=== PATIENT | female | born 1995 | race Caucasian/White ===

== ENCOUNTER → 2020-04-07 | Outpatient (REF) | payer OTHER ==
[2020-04-07 13:53] LABS: HEMATOCRIT 32.5 % (36.0-47.0); HEMOGLOBIN 10.3 g/dl (12.0-15.5); MEAN CORPUSCULAR HEMOGLOBIN 26.7 pg (27.0-33.0); MEAN CORPUSCULAR HGB CONC 31.7 g/dl (32.0-36.5); MEAN CORPUSCULAR VOLUME 84.2 fl (80.0-96.0); PLATELET COUNT, AUTOMATED 319 10^3/uL (150-450); RED BLOOD COUNT 3.86 10^6/uL (4.00-5.40); WHITE BLOOD COUNT 13.9 10^3/uL (4.0-10.0)
== END ==
LOC: M PLALAB 09:40
PROVIDERS: ATTEND Advanced Practice Midwife
DX: Z34.83 Encounter for supervision of other normal pregnancy, third trimester (principal); Z3A.00 Weeks of gestation of pregnancy not specified

== ENCOUNTER → 2020-05-03 | Outpatient (REF) | payer OTHER | LOC: M SFHCWAGY 13:06 | PROVIDERS: ATTEND Obstetrics & Gynecology | DX: O99.820 Streptococcus B carrier state complicating pregnancy (principal); Z34.83 Encounter for supervision of other normal pregnancy, third trimester ==

== ENCOUNTER 2020-05-28 08:20 | Inpatient (IN) | payer OTHER ==
[~2020-05-28] VITALS: Ht 160 cm; Wt 83.6 kg
[2020-05-28 09:01] VITALS: BP 130/77
[2020-05-28] MEDS ORDERED: FERR325T3 PO (09:11)
[2020-05-28] MEDS ORDERED: PRENTAB9 PO (09:11)
[2020-05-28] MEDS ORDERED: BENA25CA4 PO (09:11)
[2020-05-28] MEDS ORDERED: LACTATED RINGER'S 1000 ML IV STA (09:39)
[2020-05-28] MEDS ORDERED: LIDOCAINE 1% MDV 20ML VIAL INFIL PRN (09:40)
[2020-05-28] MEDS ORDERED: METHYLERGONOVINE MALEATE 0.2 MG/ML VIAL (J2210) IM PRN (09:40)
[2020-05-28] MEDS ORDERED: OXYTOCIN DRIP 30 UNITS in IV 1 EA IV PRN (09:40)
[2020-05-28 10:21] LABS: HEMATOCRIT 35.6 % (36.0-47.0); HEMOGLOBIN 11.5 g/dl (12.0-15.5); MEAN CORPUSCULAR HEMOGLOBIN 26.8 pg (27.0-33.0); MEAN CORPUSCULAR HGB CONC 32.3 g/dl (32.0-36.5); PLATELET COUNT, AUTOMATED 293 10^3/uL (150-450); RED BLOOD COUNT 4.29 10^6/uL (4.00-5.40); WHITE BLOOD COUNT 12.1 10^3/uL (4.0-10.0)
--- NOTE | 2020-05-28 10:21 | HPEPDOC ---
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 History: Spontaneous , Theraputic Past Medical History Surgical History: Denies/None Family History Significant Family History: No pertinent family hx, Cancer Social History Marital Status: Family situation: Spouse/partner home Psychosocial History: No pertinent psych hx * Smoker: non-smoker Alcohol: Denies Drugs: denies Abuse Violence Screening Have you been hit/kicked/slapp: No Have you been sexually assault: No Imunizations Tdap status: needs Influenza Status: current Allergies Uncoded Allergies: TUMMS (Allergy, Intermediate, HIVES, N/V, 05/28/20) Medications Scheduled Diphenhydramine HCl (Benadryl) 25 Mg Capsule, 25 MG PO QPM for HIVES/PUPPS Ferrous Sulfate (Ferrous Sulfate) 325 Mg Tablet.dr, 325 MG PO DAILY No.137/Iron/Folic Acd ( Vitamin Tablet) 1 Each Tablet, 1 TAB PO DAILY Physical Examination Physical Examination GENERAL: Alert and oriented times three. BREAST: . ABDOMEN: Gravid and non-tender to touch. PUPPS noted FETUS: Is vertex (VTX) by sterile vaginal examination (SVE), fetus is vertex (VTX) by Chaim. EFW 8# HEART RATE: Regular rate and rhythm. LUNGS: Clear to auscultation (CTA). EXTREMITIES: No edema. No clonus. Deep tendon reflexes (DTRs) + 2. Laboratory Data 24H LABS Laboratory Tests 2 05/28/20 08:53: Serology Scanned Report Hepatitis B Testing Pertinent Laboratoy Data Blood Type: O+ RBC Antibody Screen: Negative HIV: Negative Hepatitis B: Negative Rapid Plasma Reagin: Nonreactive Rubella: Immune Chlamydia/Gonorrhea: Negative Group B Streptococcus: Negative Other Ultrasounds [facility] 06/02/2020 Steroid Therapy Steroid Therapy: No Vaginal Examination Dilation: 1cm Effacement: 50% Station: -2 Cervical Consistency: Soft Cervical Position: Anterior Presentation: Cephalic presentation Assessment Heart Rate (FHR): 145 Variability: Moderate Accelerations: Positive Decelerations: None Tocometer Contractions: Yes Frequency: irregular (not perceived by patient) Assessment/Plan Assessment Hemalatha is a 24-year-old (G)3 para (P)0-0-2-0 at 39+6 weeks by 7-week ultrasound. Presents to Labor and Delivery (L&D) induction of labor due to PUPPS. Accessed first trimester care in [place]. Transferred to [facility] @ 31 wks. Care has been appropriate. Denies LOF, bleeding or regular UC. Reports good movement. Plan Admit and orient. Glove Printer and consent per consult Dr Roberts Diet: Regular Group B Streptococcus (GBS) negative Labs and intravenous (IV) per unit protocol. Counseled on misoprostol, Pitocin and induction of labor (IOL). Lactated Ringers (LR): Bolus 500 mL, then saline lock. Plans epidural Anticipate normal spontaneous delivery () C-S as appropriate. Amy Slater CNM May 28, 2020 10:21
[2020-05-28 10:56] LABS: ALBUMIN 2.6 GM/DL (3.2-5.2); ALT/SGPT 16 U/L (12-78); BILIRUBIN,DIRECT < 0.1 MG/DL (0.0-0.2); BILIRUBIN,TOTAL 0.2 MG/DL (0.2-1.0); TOTAL PROTEIN 6.1 GM/DL (6.4-8.2)
[2020-05-28 11:55] VITALS: BP 123/65
[2020-05-28] MEDS: miSOPROStol 50MCG 1/2 TABLET PO SCH ×3 (11:55→21:07)
[2020-05-28] MEDS ORDERED: diphenhydrAMINE CREAM 30GM TOP PRN (13:00)
[2020-05-28 14:09] VITALS: BP 131/74
[2020-05-28 16:33] VITALS: BP 125/75
[2020-05-28 18:47] VITALS: BP 139/77
[2020-05-28 19:09] VITALS: BP 138/81
--- NOTE | 2020-05-28 20:27 | IPNPDOC ---
Text Note Date of Service The patient was seen on 05/28/20. NOTE Progress Reports feeling UC but remains comfortable FH 135, Cat I UC 3-4 minutes, mild SVE /-2 Continue misoprostol at present VS,Dionbone, I+O VS, Fishbone, I+O Laboratory Tests 05/28/20 09:45 Vital Signs Date Time Temp Pulse Resp B/P (MAP) Pulse Ox O2 Delivery O2 Flow Rate FiO2 05/28/20 19:09 98.8 85 18 138/81 (100) Amy Slater CNM May 28, 2020 20:27
[2020-05-28] MEDS ORDERED: PROMETHAZINE INJ 25 MG/ML VIAL (J2550) IV ONE (21:55)
[2020-05-28] MEDS ORDERED: BUTORPHANOL 2 MG/ML INJ (J0595) IV ONE (21:55)
[2020-05-29] VITALS (38 sets, daily range): BP systolic 111–150; BP diastolic 60–89
[2020-05-29] MEDS ORDERED: LR 500 ML IV ONE (02:20)
[2020-05-29] MEDS: miSOPROStol 50MCG 1/2 TABLET PO SCH (03:04)
[2020-05-29] MEDS ORDERED: LR 1,000 ML IV SCH (08:17)
[2020-05-29] MEDS ORDERED: OXYTOCIN DRIP 30 UNITS in IV 1 EA IV SCH (08:20)
--- NOTE | 2020-05-29 08:26 | IPNPDOC ---
Obstetrical Progress Note Date of Service May 29, 2020 Subjective 24 yo at 40 0/7 weeks, day#2 induction. She rates contraction pain as 4/10 intensity. Objective Vital Signs Date Time Temp Pulse Resp B/P (MAP) Pulse Ox O2 Delivery O2 Flow Rate FiO2 05/29/20 07:49 97.8 94 20 137/71 (93) Assessment Heart Rate (FHR): 140 Variability: Moderate Accelerations: Positive Decelerations: None Heart Rate Tracing: Category I Sterile Vaginal Examination Dilation: 2cm Effacement (%): 70% Station: -2 Cervical Consistency: Soft Cervical Position: Posterior Postion/Presentation: Cephalic presentation Assessment and Plan Age: 24 : 3 Term: 0 Pre-term: 0 Abortions: 2 Livin Status: Reassuring Additional Comments 24 yo at 40 0/7, induction Pt has received 4 doses of Misoprostol Plan ot start Pitocin now Consider AROM later Pt desires epidural at some point, preferably before AROM YENNI ELIZONDO MD May 29, 2020 08:26
[2020-05-29] MEDS ORDERED: BOOSTRIX/ADACEL VACCINE (DIPHTH/PERTUSS/ACELL/TETANUS) 0.5ML SYR IM ONE (09:00)
[2020-05-29] MEDS ORDERED: FENTANYL 2MCG/ML ROPIVACAINE 0.2% IN 0.9% NACL 100ML IVBAG As Ordered ONE (13:49)
[2020-05-29] MEDS ORDERED: REFRIGERATOR IV KEYS XX PRN (14:26)
[2020-05-29] MEDS: FENTANYL/ROPIVACAINE/NACL BAG 100 ML EPIDURAL SCH ×2 (14:26→23:09)
[2020-05-29] MEDS ORDERED: EPIDURAL COMMENT XX SCH (14:26)
[2020-05-29] MEDS ORDERED: LACTATED RINGER'S 1000 ML IV PRN (14:26)
[2020-05-29] MEDS ORDERED: ePHEDrine SULFATE 25 MG/5 ML(5MG/ML) SYRINGE IV PRN (14:26)
[2020-05-29] MEDS ORDERED: NALOXONE INJ 0.4MG/1ML VIAL (J2310 PER 1MG) IV PRN (14:26)
[2020-05-29] MEDS ORDERED: EPIDURAL/PCA KEYS XX PRN (14:26)
[2020-05-29] MEDS ORDERED: diphenhydrAMINE 50MG/ML VIAL (J1200) IV PRN (14:26)
[2020-05-29] MEDS ORDERED: ONDANSETRON 4MG/2ML VIAL IV PRN (14:26)
[2020-05-30] VITALS (10 sets, daily range): BP systolic 120–141; BP diastolic 65–91
[2020-05-30] MEDS ORDERED: LIDOCAINE 1% MDV 20ML VIAL As Ordered ONE (03:13)
[2020-05-30] MEDS ORDERED: LIDOCAINE 1% MDV 20ML VIAL INFIL ONE (03:40)
[2020-05-30] MEDS ORDERED: ACETAMINOPHEN TAB 650MG DOSE (2X325MG) PO PRN (03:40)
[2020-05-30] MEDS ORDERED: MEASLES,MUMPS,RUBELLA VACCINE INJ (MMR-II) (90707) SC SCH (03:40)
[2020-05-30] MEDS ORDERED: DOCUSATE SODIUM 100MG CAPSULE PO PRN (03:40)
[2020-05-30] MEDS ORDERED: METHYLERGONOVINE MALEATE 0.2 MG TAB PO PRN (03:40)
[2020-05-30] MEDS ORDERED: RHOGAM 300 MCG (1500 IU) INJ (J2790) IM SCH (03:40)
[2020-05-30] MEDS ORDERED: OXYTOCIN DRIP 30 UNITS in IV 1 EA IV ONE (03:40)
[2020-05-30] MEDS ORDERED: ACETAMINOPHEN 500 MG TAB PO PRN (03:40)
[2020-05-30] MEDS ORDERED: DIBUCAINE 1% OINTMENT 30GM TOP PRN (03:40)
[2020-05-30] MEDS ORDERED: IBUPROFEN 800 MG TAB PO PRN (03:40)
--- NOTE | 2020-05-30 03:48 | DNPDOC ---
[facility] Delivery Note Delivery Note DATE OF DELIVERY: May 30, 2020 PREDELIVERY DIAGNOSIS: 39-6/7 weeks' gestation, labor induction. POST DELIVERY DIAGNOSIS: Delivered. PROCEDURE: Spontaneous vaginal delivery. ESCALATOR CONSTRUCTOR: Dr. Yenni Elizondo MD ANESTHESIA: epidural. ESTIMATED BLOOD LOSS: 300 mL. FINDINGS: 8 pound 11 ounce male , Score 8/9. DELIVERY SUMMARY: Patient is a 24-year-old 1 now para 1 who was admitted for labor induction. She received 4 doses of Misoprostol. She received IV Pitocin. She had AROM performed. After a 90 minute second stage of labor she had a spontaneous vaginal delivery of a 8# 11 oz male under epidural anesthesia. No nuchal cord. Shoulders delivered spontaneously with ease.Infant cried immediately and was handed to the mother. Umbilical cord clamped and cut. Placenta delivered spontaneously and appeared intact. IV Pitocin administered after delivery of the placenta. A first degree perineal laceration was repaired under local anesthesia with 2-O Chromic in the usual fashion. Sponge and needle counts correct. YENNI ELIZONDO MD May 30, 2020 03:48
[2020-05-30] MEDS: PRENATAL VITAMINS CHEWABLE TABLET PO SCH (07:53)
[2020-05-30] MEDS: IBUPROFEN 600MG TAB PO PRN ×2 (07:55→17:32)
[2020-05-30] MEDS ORDERED: diphenhydrAMINE CREAM 30GM TOP PRN (10:20)
[2020-05-31 06:00] VITALS: BP 117/74
[2020-05-31] MEDS: diphenhydrAMINE 25MG CAP PO PRN ×3 (07:46→20:20)
[2020-05-31] MEDS: PRENATAL VITAMINS CHEWABLE TABLET PO SCH (07:46)
[2020-05-31 18:00] VITALS: BP 143/74
[2020-06-01 06:00] VITALS: BP 138/82
--- NOTE | 2020-06-01 07:36 | IPNPDOC ---
Progress Note Date of Service: Jun 01, 2020 Day#: 2 Progress Note SUBJECT: Hemalatha is a who presented for an induction of labor at 39 for PUPPS. She had a vaginal delivery. She has been ambulating, voiding spontaneously without issue and tolerating regular diet. OBJECTIVE: VITAL SIGNS: Within normal limits, afebrile. Alert and oriented times three. Breath sounds clear to auscultation. Abdomen: Fundus firm at U-2. Soft, NTTP. Minimal lochia. ASSESSMENT: Day 2 PLAN: 1. Discharge to home. 2. Follow-up in 6 weeks . VS, I&O, 24H, Fishbone Vital Signs/I&O Vital Signs Date Time Temp Pulse Resp B/P (MAP) Pulse Ox O2 Delivery O2 Flow Rate FiO2 06/01/20 06:00 97.4 85 16 138/82 (100) 99 Room Air KRISTINA NICHOLS CNM Jun 01, 2020 07:36
[2020-06-01] MEDS ORDERED: IBUP80TA PO (08:25)
[2020-06-01] MEDS ORDERED: ACET-683 PO (08:25)
[2020-06-01] MEDS ORDERED: BOOSTRIX/ADACEL VACCINE (DIPHTH/PERTUSS/ACELL/TETANUS) 0.5ML SYR IM ONE (09:00)
[2020-06-01] MEDS: PRENATAL VITAMINS CHEWABLE TABLET PO SCH (09:02)
--- NOTE | 2020-06-01 13:43 | IPN ---
PROGRESS NOTE DATE: 05/31/2020 This patient requested circumcision of her male . After discussing risks and benefits of circumcision, the medical and the nonmedical indications, the penile block and aftercare; expressed understanding of penile block, aftercare, and bleeding. Signed the consent form. All questions were answered, 20 minute discussion. We await the clearance by the senior tax specialist.
== END 2020-06-01 11:55 | disposition home or self-care (01) | DRG 807 ==
LOC: M LDI 08:20 → M OBS 05-30 05:46
PROVIDERS: ADMIT Advanced Practice Midwife; ATTEND Advanced Practice Midwife
PROC: 3E033VJ Introduction of Other Hormone into Peripheral Vein, Percutaneous Approach (ICD-10-PCS; 2020-05-28)
PROC: 3E0DXGC Introduction of Other Therapeutic Substance into Mouth and Pharynx, External Approach (ICD-10-PCS; 2020-05-28)
PROC: 10E0XZZ Delivery of Products of Conception, External Approach (ICD-10-PCS; principal; 2020-05-30)
PROC: 0HQ9XZZ Repair Perineum Skin, External Approach (ICD-10-PCS; 2020-05-30)
PROC: 10907ZC Drainage of Amniotic Fluid, Therapeutic from Products of Conception, Via Natural or Artificial Opening (ICD-10-PCS; 2020-05-30)
DX: O26.86 Pruritic urticarial papules and plaques of pregnancy (PUPPP) (principal); Z37.0 Single live birth; Z3A.39 39 weeks gestation of pregnancy; O70.0 First degree perineal laceration during delivery

== ENCOUNTER → 2020-10-25 | Outpatient (CLI) | payer OTHER ==
[~2020-10-25] MED LIST: ACET-683 PO; BENA25CA4 PO; FERR325T3 PO; IBUP80TA PO; PRENTAB9 PO
[2020-10-25 13:35] LABS: BASO % 0.2 % (0.0-1.0); EOS # 0.1 10^3/uL (0.0-0.5); EOS % 0.8 % (0.0-3.0); HEMATOCRIT 41.1 % (36.0-47.0); HEMOGLOBIN 13.5 g/dl (12.0-15.5); LYMPH # 1.5 10^3/uL (1.5-5.0); LYMPH % 17.8 % (24.0-44.0); MEAN CORPUSCULAR HEMOGLOBIN 27.7 pg (27.0-33.0); MEAN CORPUSCULAR HGB CONC 32.8 g/dl (32.0-36.5); MEAN CORPUSCULAR VOLUME 84.4 fl (80.0-96.0); MONO # 0.7 10^3/uL (0.0-0.8); MONO % 8.6 % (2.0-8.0); NEUTROPHILS % 72.2 % (36.0-66.0); PLATELET COUNT, AUTOMATED 347 10^3/uL (150-450); RED BLOOD COUNT 4.87 10^6/uL (4.00-5.40); WHITE BLOOD COUNT 8.3 10^3/uL (4.0-10.0)
[2020-10-25 14:53] LABS: HEPATITIS C VIRUS ABY INDEX < 0.0 INDEX (<0.8); HIV 1&2 SCREEN CENTAUR NEGATIVE (NEGATIVE)
[2020-10-25 17:33] LABS: GC DNA AMPLIFICATION NEGATIVE (NEGATIVE)
== END ==
LOC: M PLALAB 09:15
PROVIDERS: ATTEND Specialist
DX: Z34.81 Encounter for supervision of other normal pregnancy, first trimester (principal)

== ENCOUNTER → 2021-01-04 | Outpatient (CLI) | payer OTHER ==
--- NOTE | 2021-01-04 13:45 | REP ---
INDICATION: ANATOMY. COMPARISON: None. TECHNIQUE: Real-time sonographic evaluation of the gravid uterus performed. FINDINGS: Estimated gestational age is20 weeks 0 days, EDC 05/24/2021. Today's measurements indicate appropriate growth. Presentation: Transverse Placenta anterior, grade 1, without evidence of placenta previa. heart rate is recorded at 136 beats per minute. Amniotic fluid is subjectively normal. Closed cervical length is measured at 4.7 cm. Biometry chart: BPD: 49 mm, 20 weeks 5 days, 69th percentile. HC: 177 mm, 20 weeks 1 days, 56th percentile AC: 150 mm, 20 weeks 2 days, 55th percentile Femur length: 32 mm, 20 weeks 0 days, 51st percentile HC to AC ratio: 1.18, normal range 1.06-1.24. Estimated weight: 336g, 55th percentile. anatomy: Cranium: Grossly normal Lateral Ventricles/Choroid Plexus: Grossly normal Posterior Fossa/Cerebellum: Grossly normal Nose/lips/profile: Nose and lips are not well visualized. Four chamber heart: Grossly normal Right ventricular outflow tract: Grossly normal Left ventricular outflow tract: Grossly normal Left-sided stomach: Grossly normal Kidneys: Grossly normal Bladder: Grossly normal Cord Insertion: Grossly normal 3 vessel cord: Grossly normal Spine: Not well visualized. IMPRESSION: Viable single intrauterine gestation as above. <Electronically signed by Vipul Phipps > 01/04/21 [id number]
== END ==
LOC: M WHC 06:58
PROVIDERS: ATTEND Specialist
DX: Z34.82 Encounter for supervision of other normal pregnancy, second trimester (principal); Z3A.20 20 weeks gestation of pregnancy
CPT/HCPCS: 76811; 90471; 90715; G0463

== ENCOUNTER → 2021-02-18 | Outpatient (CLI) | payer OTHER | LOC: M WHC 07:28 | PROVIDERS: ATTEND Specialist | DX: Z34.82 Encounter for supervision of other normal pregnancy, second trimester (principal); Z3A.26 26 weeks gestation of pregnancy ==

== ENCOUNTER → 2021-03-07 | Outpatient (CLI) | payer OTHER ==
[2021-03-07 13:44] LABS: BASO % 0.2 % (0.0-1.0); EOS # 0.1 10^3/uL (0.0-0.5); EOS % 0.7 % (0.0-3.0); HEMATOCRIT 36.1 % (36.0-47.0); HEMOGLOBIN 11.5 g/dl (12.0-15.5); LYMPH # 1.1 10^3/uL (1.5-5.0); LYMPH % 11.7 % (24.0-44.0); MEAN CORPUSCULAR HGB CONC 31.9 g/dl (32.0-36.5); MONO # 0.6 10^3/uL (0.0-0.8); MONO % 5.7 % (2.0-8.0); NEUTROPHILS # 7.8 10^3/uL (1.5-8.5); NEUTROPHILS % 81.1 % (36.0-66.0); PLATELET COUNT, AUTOMATED 274 10^3/uL (150-450); WHITE BLOOD COUNT 9.6 10^3/uL (4.0-10.0)
[2021-03-07 15:33] LABS: GC DNA AMPLIFICATION NEGATIVE (NEGATIVE)
== END ==
LOC: M PLALAB 08:43
PROVIDERS: ATTEND Specialist
DX: Z34.82 Encounter for supervision of other normal pregnancy, second trimester (principal)

== ENCOUNTER → 2021-04-29 | Outpatient (REF) | payer OTHER | LOC: M PLALAB 10:10 | PROVIDERS: ATTEND Obstetrics & Gynecology | DX: Z34.83 Encounter for supervision of other normal pregnancy, third trimester (principal); Z53.8 Procedure and treatment not carried out for other reasons ==

== ENCOUNTER → 2021-05-02 | Outpatient (CLI) | payer OTHER | LOC: M LAB 08:27 | PROVIDERS: ATTEND Specialist | DX: Z34.82 Encounter for supervision of other normal pregnancy, second trimester (principal) ==

== ENCOUNTER → 2021-05-10 | Outpatient (REF) | payer OTHER | LOC: M PLALAB 10:39 | PROVIDERS: ATTEND Advanced Practice Midwife | DX: Z34.93 Encounter for supervision of normal pregnancy, unspecified, third trimester (principal) ==

== ENCOUNTER 2021-05-18 19:11 | Inpatient (IN) | payer OTHER ==
[~2021-05-18] VITALS: Ht 160 cm; Wt 81.4 kg
[2021-05-18] VITALS (8 sets, daily range): BP systolic 132–147; BP diastolic 65–85
[2021-05-18] MEDS ORDERED: TRANEXAMIC ACID INJection 1,000 MG in NS 100 ML IV PRN (20:20)
[2021-05-18] MEDS ORDERED: LIDOCAINE 1% MDV 20ML VIAL INFIL PRN (20:20)
[2021-05-18] MEDS ORDERED: OXYTOCIN DRIP 30 UNITS in IV 1 EA IV PRN ×4 (20:20)
[2021-05-18] MEDS ORDERED: METHYLERGONOVINE MALEATE 0.2 MG/ML VIAL (J2210) IM PRN (20:20)
[2021-05-18] MEDS ORDERED: OXYTOCIN INJ 10 UNITS/ML VIAL (J2590) IM PRN (20:20)
[2021-05-18] MEDS ORDERED: miSOPROStol 50MCG 1/2 TABLET PO ONE (20:45)
[2021-05-18 20:48] LABS: HEMATOCRIT 33.7 % (36.0-47.0); HEMOGLOBIN 11.1 g/dl (12.0-15.5); MEAN CORPUSCULAR HEMOGLOBIN 27.2 pg (27.0-33.0); MEAN CORPUSCULAR HGB CONC 32.9 g/dl (32.0-36.5); MEAN CORPUSCULAR VOLUME 82.6 fl (80.0-96.0); PLATELET COUNT, AUTOMATED 326 10^3/uL (150-450); RED BLOOD COUNT 4.08 10^6/uL (4.00-5.40); WHITE BLOOD COUNT 12.7 10^3/uL (4.0-10.0)
[2021-05-18 22:44] LABS: ALT/SGPT 13 U/L (12-78); BILIRUBIN,TOTAL 0.3 MG/DL (0.2-1.0); CREATININE FOR GFR 0.68 MG/DL (0.55-1.30); GLOMERULAR FILTRATION RATE > 60.0 (>60); LDH LACTATE DEHYDROGENASE 149 U/L (84-246); URIC ACID 4.3 MG/DL (2.6-6.0)
[2021-05-18 23:07] LABS: CREATININE,RANDOM URINE 45.3 MG/DL
[2021-05-19] VITALS (61 sets, daily range): BP systolic 95–145; BP diastolic 52–97
[2021-05-19] MEDS ORDERED: OXYTOCIN DRIP 30 UNITS in IV 1 EA IV SCH (01:25)
[2021-05-19] MEDS: LR 1,000 ML IV SCH ×2 (01:42→14:28)
[2021-05-19] MEDS ORDERED: FENTANYL 2MCG/ML ROPIVACAINE 0.2% IN 0.9% NACL 100ML IVBAG As Ordered ONE (06:25)
[2021-05-19] MEDS ORDERED: ONDANSETRON 4MG/2ML VIAL IV PRN (06:35)
[2021-05-19] MEDS ORDERED: NALOXONE INJ 0.4MG/1ML VIAL (J2310 PER 1MG) IV PRN (06:35)
[2021-05-19] MEDS ORDERED: FENTANYL/ROPIVACAINE/NACL BAG 100 ML EPIDURAL SCH (06:35)
[2021-05-19] MEDS ORDERED: EPIDURAL/PCA KEYS XX PRN (06:35)
[2021-05-19] MEDS ORDERED: EPIDURAL COMMENT XX SCH (06:35)
[2021-05-19] MEDS ORDERED: LACTATED RINGER'S 1000 ML IV PRN (06:35)
[2021-05-19] MEDS ORDERED: ePHEDrine SULFATE 25 MG/5 ML(5MG/ML) SYRINGE IV PRN (06:35)
[2021-05-19] MEDS ORDERED: REFRIGERATOR IV KEYS XX PRN (06:35)
[2021-05-19] MEDS ORDERED: diphenhydrAMINE 50MG/ML VIAL (J1200) IV PRN (06:35)
[2021-05-19] MEDS ORDERED: METHYLERGONOVINE MALEATE 0.2 MG TAB PO PRN (17:55)
[2021-05-19] MEDS ORDERED: MEASLES,MUMPS,RUBELLA VACCINE INJ (MMR-II) (90707) SC SCH (17:55)
[2021-05-19] MEDS ORDERED: IBUPROFEN 600MG TAB PO PRN (17:55)
[2021-05-19] MEDS ORDERED: RHOGAM 300 MCG (1500 IU) INJ (J2790) IM SCH (17:55)
[2021-05-19] MEDS ORDERED: DIBUCAINE 1% OINTMENT 30GM TOP PRN (17:55)
[2021-05-19] MEDS ORDERED: ACETAMINOPHEN 500 MG TAB PO PRN (17:55)
[2021-05-19] MEDS ORDERED: DOCUSATE SODIUM 100MG CAPSULE PO PRN (17:55)
[2021-05-20 05:56] VITALS: BP 123/74
[2021-05-20] MEDS: PRENATAL VITAMINS CHEWABLE TABLET PO SCH (09:41)
[2021-05-20 18:00] VITALS: BP 120/68
[2021-05-21 06:00] VITALS: BP 120/60
[2021-05-21] MEDS: PRENATAL VITAMINS CHEWABLE TABLET PO SCH (08:37)
== END 2021-05-21 11:55 | disposition home or self-care (01) | DRG 807 ==
LOC: M LDI 19:11 → M OBS 05-19 19:46
PROVIDERS: ADMIT Advanced Practice Midwife; ATTEND Advanced Practice Midwife
PROC: 3E0P7VZ Introduction of Hormone into Female Reproductive, Via Natural or Artificial Opening (ICD-10-PCS; 2021-05-18)
PROC: 10E0XZZ Delivery of Products of Conception, External Approach (ICD-10-PCS; principal; 2021-05-19)
PROC: 0HQ9XZZ Repair Perineum Skin, External Approach (ICD-10-PCS; 2021-05-19)
PROC: 10907ZC Drainage of Amniotic Fluid, Therapeutic from Products of Conception, Via Natural or Artificial Opening (ICD-10-PCS; 2021-05-19)
PROC: 3E033VJ Introduction of Other Hormone into Peripheral Vein, Percutaneous Approach (ICD-10-PCS; 2021-05-19)
DX: O14.94 Unspecified pre-eclampsia, complicating childbirth (principal); Z37.0 Single live birth; Z3A.39 39 weeks gestation of pregnancy; O70.0 First degree perineal laceration during delivery